=== PATIENT | female | born 1980 | race African-American/Black ===

== ENCOUNTER 2017-01-07 16:06 | Inpatient (IN) ==
[2017-01-07] MEDS ORDERED: KETOROLAC 60 MG/2 ML VIAL IM STA (17:17)
[2017-01-07] MEDS ORDERED: KETOROLAC 60 MG/2 ML VIAL IM ONE (17:41)
[2017-01-07 17:52] LABS: Basophils % 0.5 % (0.0-0.8); Eosinophils # 0.1 10*3/uL (0.0-0.87); Eosinophils % 1.4 % (0.00-10.9); Hematocrit 33.7 VOL% (35.7-47.0); Immature Granulocytes % 0.4 %; Immature Granulocytes Absolute 0.03 #; Lymphocytes # 1.2 10*3/uL (1.4-4.0); Lymphocytes % 15.1 % (21.3-54.2); Mean Corpuscular HGB Conc 32.6 GM/DL (32-36); Mean Corpuscular Hemoglobin 28 PG (27-34); Mean Corpuscular Volume 84.7 FL (87-102); Mean Platelet Volume 10.6 FL (9.6-12.0); Monocytes # 0.6 10*3/uL (0.11-0.8); Monocytes % 7.6 % (1.7-12.7); Platelet Count 296 T/CUMM (130-400); Red Blood Count 3.98 MC/CUMM (3.8-5.5); Red Cell Distribution Width 15.7 % (9.3-17.3); White Blood Count 7.9 T/CUMM (4-12)
[2017-01-07 17:59] LABS: Apearance,Urine Slightly Hazy (Clear); Bilirubin,Urine Negative (Negative); Blood, Urine Negative (Negative); Glucose,Urine (UA) Negative (Negative); Ketones,Urine Negative (Negative); Mucus,Urine Many /LPF (Occasional); Nitrite,Urine Negative (Negative); Protein,Urine 30 MG/DL; RBC,Urine 3 /HPF (0-4); Squamous Epithelial Cell,Urine Occasional /HPF (0-10); Urine Color Amber (Yellow); Urine Specific Gravity 1.031 (1.001-1.035); WBC,Urine 1 /HPF (0-6)
[2017-01-07 18:20] LABS: Albumin 3.2 G/DL (3.4-5.0); Bilirubin,Total 0.9 MG/DL (0.2-1.0); Calcium 8.3 MG/DL (8.5-10.1); Osmolality,Calculated 276.7 MOS/KG (273-304); Potassium 3.8 MMOL/L (3.5-5.1)
--- NOTE | 2017-01-07 18:59 | CT Report ---
CT abdomen pelvis Indication: Abdominal pain Comparison: None available Technique: Axial CT imaging of the abdomen and pelvis is performed with intravenous contrast. Contrast dose is 100 cc of Omnipaque 350. No oral contrast was used. Findings: Cardiac and lung bases are within normal limits CT abdomen: Gallbladder is distended with wall thickening. The liver spleen pancreas and adrenal glands are normal in size and enhancement. No evidence of focal lesion is demonstrated in these solid organs. Kidneys are normal in size and enhancement. No evidence of hydronephrosis or nephrolithiasis is seen. The bowel caliber is normal and no wall thickening or adjacent inflammatory change is seen. No evidence of free fluid or free air is present. Appendix appears normal. CT pelvis: The pelvic bowel appears within normal limits. Bladder shows no evidence of abnormality. The pelvic organs show no evidence of abnormality Impression: Distended gallbladder with wall thickening, could indicate cholecystitis. This CT exam was performed using one or more the following dose reduction techniques: Automated exposure control, adjustment of the MA and/or KV according to patient size, or use of iterative reconstruction technique. PROCEDURE INTERPRETED AT [facility] DEPARTMENT OF RADIOLOGY Final Report Signed by: Dr. Graeme Mnoson
--- NOTE | 2017-01-07 19:32 | Emergency Department Note ---
Marco Jones Manpreet, am scribing for, and in the presence of, Adin Ahumada DO 17 :19. IBrandyn John, DO, personally performed the services described in this documentation, ascribed by Camilo Lara in my presence, and it is both accurate and complete 915 . Arrival - Arrival Chief Complaint: Abdominal / Flank Pain Stated Complaint: Lower stomach and back pain ED Nursing Triage Note: PT C/O RIGHT LOWER QUAD PAIN THAT RADIATES TO RIGHT FLANK SINCE YESTERDAY. PT ALSO C/O PAIN TO RIGHT SHOULDER BLADE. REPORTS PASSING GAS AND HAVING NORMAL BM. DENIES N/V. REPORTS TRACE OF BLOOD ON TISSUE AFTER VOIDING. Mode of Arrival: Ambulatory Limitations: No Limitations Source: Patient Time Seen by Provider: 01/07/17 17:07 - History of Present Illness HPI Narrative: Pt is a 36 y/o female who presents to the ED with CC of right sided Abd pain that goes around to her back onset 01/04/17. Pt states she initially thought it was her period and ignored it. Pt reports of having blood present when she wipes after urination. Pt c/o being nauseated but denies fever, chills, or V/D. Pt felt a sharp pain twice which lasted 3-4 seconds that prompted her to come to the ED. Pt reports of taking penicillin 7 days ago after having a tooth pulled. Pt states her period is next week. No other pains/complaints reported to the ED. Onset (ago): day(s) (01/04/17) Consistency: constant Severity: mild, moderate Severity scale (1-10): 3 Quality: sharp Date of Last Menstrual Period: DEC 13 Allergies/Adverse Reactions: Allergies Allergy/AdvReac Type Severity Reaction Status Date / Time No Known Allergies Allergy Verified 01/07/17 16:24 Home Medications: Home Medications Medication Instructions Recorded Confirmed Type Amoxicillin/Clav Tab [Augmentin 875 mg PO BID #20 tablet 08/21/14 Rx Tab] traMADol TAB [Ultram] 50 mg PO Q8H PRN #20 tablet 08/21/14 Rx Review of System - Review of System 12 point system: reviewed and no additional remarkable complaints except as stated - Review of System Constitutional: Absent: chills, diaphoresis, fever Respiratory: Absent: cough, respiratory distress, wheezing Cardiovascular: Absent: chest pain Gastrointestinal: Present: abdominal pain (Right abd pain), nausea. Absent: vomiting, diarrhea Genitourinary female: Present: hematuria. Absent: dysuria Musculoskeletal: Present: back pain (Right back/flank pain). Absent: arm pain, leg pain Neurological: Absent: headache, weakness, numbness, paresthesias Medical,Surgical,& Family Hx - Surgical History Reproductive Surgeries: Surgical HX of;: Section (X3) - Family History Family History: Reports;: Family Hypertension (PARENTS (LIVING)) - Social History Smoking Status: Never smoker Frequency of Alcohol Use: None Type of Drug Use: None Exam Vital Signs: Vital Signs Temperature 98.5 F 01/07/17 16:21 Pulse Rate 88 01/07/17 16:21 Respiratory Rate 18 01/07/17 16:21 Blood Pressure 115/75 01/07/17 16:21 O2 Sat by Pulse Oximetry 100 01/07/17 16:21 - General General appearance: alert, in no apparent distress - Head Head exam: Present: atraumatic, normocephalic, normal inspection - Eye Eye exam: Present: normal appearance, PERRL, EOMI - ENT ENT exam: Present: normal exam, normal oropharynx, mucous membranes moist, TM's normal bilaterally - Neck Neck exam: Present: normal inspection, full ROM, trachea midline - Chest Chest inspection: Present: normal inspection, symmetric chest wall rise. Absent : tenderness - Respiratory Respiratory exam: Present: normal lung sounds bilaterally. Absent: accessory muscle use, respiratory distress - Cardiovascular Cardiovascular exam: Present: regular rate, normal rhythm, normal heart sounds. Absent: murmur, rubs, gallop - Abdominal Exam Abdominal exam: Present: soft, tenderness (RLQ tenderness), normal bowel sounds. Absent: distention - Extremities Exam Extremities exam: Present: normal inspection, full ROM. Absent: tenderness - Back Exam Back exam: Present: normal inspection, full ROM. Absent: tenderness - Neurological Exam Neurological exam: Present: alert, oriented X3, CN II-XII intact, reflexes normal - Psychiatric Psychiatric exam: Present: normal affect, normal mood - Skin Skin exam: Present: warm, dry, intact, normal color. Absent: pallor Course - Reevaluation(s) Reevaluation #1: Spoke with Dr. Phipps (surgeon tanning consultant). Wants pt admitted--liquids only--NPO after midnight. IV abx also. Time: 19:16 Results - Labs CBC & BMP: 01/07/17 17:20 01/07/17 17:20 Lab Results: I have reviewed the patients labs Labs: Laboratory Tests 01/07/17 17:20 WBC 7.9 RBC 3.98 Hgb 11.0 L Hct 33.7 L MCV 84.7 L MCH 28 MCHC 32.6 RDW 15.7 Plt Count 296 MPV 10.6 Neut % (Auto) 75.0 H Lymph % (Auto) 15.1 L Burleigh % (Auto) 7.6 Eos % (Auto) 1.4 Baso % (Auto) 0.5 Neut # (Auto) 6.0 Lymph # (Auto) 1.2 L Laboratory Tests 01/07/17 01/07/17 17:40 17:40 Urine Color Yohana Urine Appearance Slightly hazy Urine pH 5.0 Ur Specific [place] 1.031 Urine Protein 30 Urine Glucose (UA) Negative Urine Ketones Negative Urine Blood Negative Urine Nitrate Negative Urine Bilirubin Negative Urine Urobilinogen 4.0 H Urine Leukocytes Negative Urine RBC 3 Urine WBC 1 Ur Squamous Epith Cells Occasional Urine Mucus Many Ur Culture Indicated? Not indicated Urine Test Negative Laboratory Tests 01/07/17 17:20 Sodium 138 Potassium 3.8 Chloride 106 Carbon Dioxide 28 Anion Gap 7.8 BUN 17 GFR Calculation 139 Calcium 8.3 L AST 16 Albumin 3.2 L Globulin 3.8 H Albumin/Globulin Ratio 0.8 L - Diagnostic Findings Procedure: CT Abdomen and Pelvis: report reviewed by me ("CT Abd/Pel w/ con: Distended gallbladder with wall thickening, could indicate cholecystitis.") Disposition Clinical Impression: Cholecystitis Case discussed with: patient Disposition: Still a Patient Condition: Stable
[2017-01-07] MEDS ORDERED: ONDANSETRON 4 MG/2 ML VIAL IV PRN (20:17)
[2017-01-07] MEDS: DEXTROSE 5% NACL 0.45% 1,000 ML IV SCH (20:54)
[2017-01-07] MEDS: metroNIDAZOLE INJ 500 MG in PREMIX 1 EACH IV SCH (21:28)
[2017-01-07] MEDS: PIPERACILLIN/TAZOBACTAM 3,375 MG in SODIUM CHLORIDE 0.9% 100 ML IV SCH (23:29)
[2017-01-08] MEDS: metroNIDAZOLE INJ 500 MG in PREMIX 1 EACH IV SCH ×3 (04:34→20:44)
[2017-01-08] MEDS: DEXTROSE 5% NACL 0.45% 1,000 ML IV SCH ×4 (04:36→23:36)
[2017-01-08] MEDS: PIPERACILLIN/TAZOBACTAM 3,375 MG in SODIUM CHLORIDE 0.9% 100 ML IV SCH ×3 (06:31→23:37)
--- NOTE | 2017-01-08 08:35 | General Surg History&Physical ---
Assessment and Plan (1) Cholecystitis Status: Acute Assessment and plan: Impression: Acute cholecystitis Plan: CT scan images and report were reviewed. Patient has a dilated gallbladder with thickened wall. Consistent with cholecystitis. Clinical picture appears to represent cholecystitis. I discussed options with the patient including antibiotics, percutaneous cholecystostomy, cholecystectomy. Risk and benefits of each were discussed. She wants to proceed with cholecystectomy. Risk of the procedure including bleeding, infection, damage to surrounding structures including the biliary tree, need for further surgery, conversion to an open procedure were all discussed in detail and she would like to proceed. Current Visit: Yes History of Present Illness Chief complaint: Abdominal pain History of present illness: Ms. Lemus is a 36 year old female came to the emergency room with right-sided abdominal pain. She states the pain began on Monday of this past week and has never gone away. She had a previous episode of this approximately 2 months ago but it went away after several hours. She states the pain is sharp located in the right upper quadrant and radiates to the right flank. She has had some nausea but no vomiting. She denies fever. Bowel habits have been normal. She has no chest pain or shortness of breath. Home Medications Medication Instructions Recorded Confirmed Type No Known Home Medications [No 01/08/17 01/08/17 History Known Home Medications] Allergies Allergy/AdvReac Type Severity Reaction Status Date / Time No Known Allergies Allergy Verified 01/07/17 16:24 Medical,Surgical,& Family Hx - Medical History Medical History: noncontributory - Surgical History Reproductive Surgeries: Surgical HX of;: Section (X3) - Family History Family History: Reports;: Family Cancer (sister had lymphoma, not currently; grandmother (unknown what type)), Family Diabetes (grandmother), Family Hypertension (PARENTS (LIVING)) - Social History Smoking Status: Never smoker Frequency of Alcohol Use: None Type of Drug Use: None Exam - Constitutional Vitals: Period Temp Pulse Resp BP Sys/Goel Pulse Ox Last 24 Hr 97.7 F-98.9 F 75-88 18-20 115-133/61-77 94-100 General appearance: no acute distress - Head Head exam: Present: normocephalic - ENT Mouth exam: Present: normal external inspection - Neck Neck exam: Present: normal inspection - Respiratory Respiratory exam: Present: clear to auscultation bilaterally - Cardiovascular Cardiovascular exam: Present: RRR - GI/Abdominal GI/Abdominal exam: Present: soft (Tender to palpation in the right upper quadrant with positive Delgado sign. No other abdominal tenderness. Obese but does not appear distended.) - Extremities Exam Extremities exam: Present: normal inspection - Back Exam Back exam: Present: normal inspection - Neurological Exam Neurological exam: Present: alert, oriented X3 Speech: Present: normal - Skin Skin exam: Present: normal color 12 point system: reviewed and no additional remarkable complaints except as stated Results - Labs CBC & BMP: 01/07/17 17:20 01/07/17 17:20 Lab Results: I have reviewed the past 24 hour labs
[2017-01-08] MEDS ORDERED: LIDOCAINE 1%/EPI INJ 20 ML VIAL ONE ×2 (08:46→09:48)
[2017-01-08] MEDS ORDERED: ROCURONIUM 100 MG/10 ML VIAL IV ONE (09:24)
[2017-01-08] MEDS ORDERED: PROPOFOL 200 MG/20 ML VIAL IV ONE (09:24)
[2017-01-08] MEDS ORDERED: ONDANSETRON 4 MG/2 ML VIAL ONE (09:24)
[2017-01-08] MEDS ORDERED: DEXAMETHASONE 10 MG/1 ML VIAL ONE (09:24)
[2017-01-08] MEDS ORDERED: GLYCOPYRROLATE 0.4 MG/2 ML VIAL ONE (09:24)
[2017-01-08] MEDS ORDERED: NEOSTIGMINE 10 MG/10 ML VIAL ONE (09:24)
[2017-01-08] MEDS ORDERED: KETOROLAC 30 MG/1 ML VIAL ONE (09:24)
[2017-01-08] MEDS ORDERED: LIDOCAINE 2% 5 ML VIAL ONE (09:24)
[2017-01-08] MEDS: PANTOPRAZOLE 40 MG TABLET PO SCH (09:27)
--- NOTE | 2017-01-08 10:43 | Anesthesia Post-Op ---
Anesthesia Post OP - Post Ansesthetic Evaluation Patient seen in post op: Yes Resp: within normal limits CV: within normal limits Mental: within normal limits Temp: within normal limits [id number]: within normal limits Nausea and Vomiting: within normal limits Pain: within normal limits
--- NOTE | 2017-01-08 10:51 | Fluoroscopy Report ---
Intraoperative cholangiogram Indication: Cholecystectomy Findings: Intraoperative cholangiogram was performed after cholecystectomy. There is normal passage of contrast into the biliary system and small bowel. No retained calculi are identified in biliary system. Fluoroscopy time 26.3 seconds. Impression: No evidence of abnormality seen. PROCEDURE INTERPRETED AT [facility] DEPARTMENT OF RADIOLOGY Final Report Signed by: Dr. Graeme Monson
--- NOTE | 2017-01-08 11:10 | Operative Note ---
Date of procedure: 01/08/17 Pre-op diagnosis: Acute cholecystitis Post-op diagnosis: same Procedure: Procedure performed: Laparoscopic cholecystectomy with intraoperative cholangiogram Procedure in detail: After informed consent was obtained, patient was taken operating suite and laid supine on the operating table. After general anesthesia was induced the abdomen was prepped and draped in usual sterile fashion. After procedural pause local anesthetic infiltrated in skin and subcutaneous tissue just above the umbilicus. Incision was made and dissection carried down through the soft tissue. The fascia grasped with Nicko's and elevated. Fascial incision was made. Abdominal cavity was entered bluntly. Finger sweep revealed no adhesions. Davies trocar placed under direct visualization. Pneumoperitoneum achieved. The camera inserted bowel mesentery inspected found to be free of any violation. Next patient was placed in reverse Trendelenburg position rotated to the left. 2 5 mm trochars were placed in the right upper quadrant 11 mm subxiphoid trocar was placed all under visualization. Gallbladder identified. It was significantly thickened and acutely edematous all consistent with acute cholecystitis. Cholecystotomy made for decompression and there was clear fluid draining indicating hydrops. Once the gallbladder was decompressed he was able to be grasped and elevated. Omentum was bluntly dissected away from the gallbladder wall. Dissection was carried out from lateral to medial approach and the triangle of Fany. The cystic duct and cystic artery were identified and isolated. Using a critical view technique these are the only 2 structures entering the gallbladder. Clip was placed the junction of the cystic duct neck of the gallbladder and partial transection made on cystic duct and cholangiocatheter inserted and secured in place. Intraoperative glandular and performed. Cystic duct common bile duct intra-and extrahepatic ducts all filled with no filling defects identified. Contrast was seen entering small bowel. The cholangiocatheter was removed and 2 clips were placed on cystic duct just distal to the partial transection the transection completed. Cystic artery was triple clipped and transected and gallbladder removed from the gallbladder fossa using hook cautery and placed in Endo Catch sac and removed to the Davies trocar site. Pneumoperitoneum was reestablished in the right upper quadrant thoroughly irrigated and suctioned. The clips inspected found to be intact no leakage of bilious or sanguinous fluid. There is good hemostasis. The irrigant remained clear was all suctioned. The trochars were removed his abdomen desufflated. Fascia at the Davies trocar site closed using 0 Vicryl [id number] interrupted suture. Wounds were thoroughly irrigated and suctioned. Incisions were closed with jet. Sterile dressings applied. The patient was explained taken recovery room in stable condition. All lap and needle counts were correct at the end of the case. Anesthesia: KAELYNA Surgeon / Physician: Brayan Devlin Estimated blood loss: other (Less than 10 cc) Specimens: other (Gallbladder) Condition: stable Disposition: PACU Results - Labs CBC & BMP: 01/07/17 17:20 01/07/17 17:20 Discharge Plan - Discharge Medications No Action No Known Home Medications [No Known Home Medications] - Follow Up or Referral - Forms/Instructions
[2017-01-08] MEDS ORDERED: DESFLURANE 1 UNIT/15 MINUTE INH ONE (11:19)
[2017-01-08] MEDS ORDERED: MIDAZOLAM 2 MG/2 ML VIAL ONE (11:20)
[2017-01-08] MEDS ORDERED: LACTATED RINGERS 1,000 ML IV ONE (11:20)
[2017-01-08] MEDS ORDERED: fentaNYL 100 MCG/2 ML VIAL ONE (11:20)
[2017-01-08] MEDS ORDERED: SCOPOLAMINE 1.5 MG PATCH TRANSDERM ONE (11:21)
[2017-01-08] MEDS: ACETAMINOPHEN 325 MG TABLET PO PRN ×2 (12:41→20:43)
[2017-01-09] MEDS: DEXTROSE 5% NACL 0.45% 1,000 ML IV SCH (04:46)
[2017-01-09] MEDS: ACETAMINOPHEN 325 MG TABLET PO PRN (05:29)
[2017-01-09] MEDS: metroNIDAZOLE INJ 500 MG in PREMIX 1 EACH IV SCH (05:30)
[2017-01-09] MEDS: PIPERACILLIN/TAZOBACTAM 3,375 MG in SODIUM CHLORIDE 0.9% 100 ML IV SCH (06:57)
[2017-01-09] MEDS: PANTOPRAZOLE 40 MG TABLET PO SCH (08:51)
--- NOTE | 2017-01-09 09:43 | Discharge Summary ---
Hospital Course - Hospital Course Hospital Course: The patient is a 36-year-old female who is admitted with acute cholecystitis and underwent laparoscopic cholecystectomy with intraoperative cholangiogram on 01/08/[address] Devlin. Postoperatively, her pain was well-controlled, she was tolerating oral intake, voiding, and ambulating without difficulty. She was discharged home in good condition with oral analgesics, postoperative instructions, and a follow-up appointment Dr. Devlin. No complications to note. Gallbladder pathology pending at the time of discharge. Diagnosis - Discharge Diagnosis (1) Cholecystitis Status: Acute Discharge Plan - Discharge Data Disposition: Disch To Home/Self Care Condition at Discharge: Stable Discharge Diet: advance to your usual diet Activity: no lifting (Greater than 10 pounds) Hygiene: may shower (Starting second day after surgery) Driving: other (while taking narcotics) Contact your physician if you experience:: fever over 101, Redness or swelling, Nausea/Vomiting, Shortness of breath, Bleeding, pain uncontrolled by pain medications Wound / Dressing Care Instructions: Keep surgical incision clean, dry and covered. Do not soak or submerge wounds. Pat wounds dry. - Discharge Medications New HYDROcodone/ACETAMIN 7.5-325 [Manson 7.5-325] 1 - 2 tablet PO Q4H PRN #30 tablet PRN Reason: Pain Moderate To Severe (4-10) - Follow Up or Referral Follow Up: Brayan Devlin MD [Physician] - 2 Weeks - Forms/Instructions Instructions: Laparoscopic Cholecystectomy (DC) Exam - Constitutional Vitals: Period Temp Pulse Resp BP Sys/Goel Pulse Ox Last 24 Hr 97 F-99.2 F 56-71 16-20 91-123/42-71 95-100 General appearance: no acute distress - Respiratory Respiratory exam: Present: clear to auscultation bilaterally - Cardiovascular Cardiovascular exam: Present: regular rate and rhythm - GI/Abdominal GI/Abdominal exam: Present: hypoactive bowel sounds, tenderness (Appropriate postoperative tenderness), soft, other (Surgical incisions clean, dry and intact ). Absent: distended, firm - Extremities Exam Extremities exam: Absent: calf tenderness, edema - Neurological Exam Neurological exam: Present: alert, oriented X3 - Psychiatric Psychiatric exam: Present: normal affect, normal mood - Skin Skin exam: Present: normal color Discharge Results Procedures and tests throughout hospitalization: Laparoscopic cholecystectomy with intraoperative cholangiogram Dr. Devlin on ; gallbladder pathology pending at the time of discharge - Imaging and Cardiology Procedure: CT Abdomen and Pelvis: image reviewed by me, report reviewed by me ( Distended gallbladder with wall thickening; no cholelithiasis reported) DS: Provider Date of admission: 01/07/17 19:18 Primary care physician: . No PCP Attending physician on admission: Brayan Devlin MD Consults: None Discharging clinician: Judith Ngo PA-C
[2017-01-09 11:19] VITALS: BP 106/58
--- NOTE | 2017-01-10 09:24 | Pathology Report from [facility] ---
[facility] [place] ACCESSION # : [id number] PATIENT NAME : Xavier Lemus ORDERING DR : Brayan Devlin MD CLINICAL HX: Cholecystitis POST-OP DX: Same SPECIMEN INFO: Gallbladder GROSS DESCRIPTION: Received in formalin labeled XAVIER LEMUS is an intact gallbladder measuring 11.4 x 4.5 cm. The serosa is fatty pink gaitan, focally erythematous with an area of ulceration at the fundus. The gallbladder wall has a thickness of up to 0.2 cm. The mucosa is granular, erythematous and ulcerated. The lumen contains hyperemic viscous bile with a 3.2 x 1.7 cm oval roughened yellow gaitan stone and smaller smooth faceted brown stones noted measuring 2.5 x 4 cm in aggregate and a portion is located within the cystic duct. Privacy Officer tissue is submitted in one cassette. DIAGNOSIS FOR XAVIER LEMUS: GALLBLADDER: Acute and chronic cholecystitis. Cholelithiasis. No evidence of malignancy. COLLECTED DATE: 01/09/2017 [facility] REPORT DATE: 01/09/2017 ELECTRONICALLY SIGNED BY: Matt Deleon III, M.D. 01/09/2017 - 11:06:17 GAGANDEEP
--- NOTE | 2017-01-11 14:44 | Physician Query Form ---
CLICK EDIT DOCUMENT TO SELECT QUERY ANSWER --> OK --> SIGN Brinada Pritchard RN Clinical Cutting Tool Sharpener W) [phone] (f) [phone] [email or web address] PROVIDERS: Make your selection(s) from the choices in EACH section by typing an "x" and enter comments in the comment section. Please use your independent medical judgment in providing your response. This request does not imply that any particular answer is desired or expected. CLINICAL INDICATORS: (Providers should not edit this section) Based on documentation of "admitted with acute cholecystitis and underwent laparoscopic cholecystectomy with intraoperative cholangiogram". Pathology report states "Acute and chronic cholecystitis. Cholelithiasis". Please clarify if you agree with pathology findings. Pathology Findings:Acute and chronic cholecystitis. Cholelithiasis Abnormal Pathology findings are not reported unless an authorized provider indicates their clinical significance Please select the best choice: ( ) I agree with the Pathology findings ( ) I disagree with the Pathology findings ( ) No clinical significance ( ) Other/clarification of findings, please specify: ( ) Clinically unable to determine COMMENTS: PLEASE ALSO DOCUMENT RESPONSE IN PROGRESS NOTES AND/OR DISCHARGE SUMMARY Use of terms such as suspected, likely, or probable (associated with a specific diagnosis that is being evaluated, monitored, or treated as if it exists) are acceptable and can be restated in the discharge summary if not ruled out. MTDD
--- NOTE | 2017-01-12 07:37 | Physician Query Form ---
CLICK EDIT DOCUMENT TO SELECT QUERY ANSWER --> OK --> SIGN Brianda Pritchard RN Clinical Building Carpenter Helper W) [phone] (f) [phone] [email or web address] PROVIDERS: Make your selection(s) from the choices in EACH section by typing an "x" and enter comments in the comment section. Please use your independent medical judgment in providing your response. This request does not imply that any particular answer is desired or expected. CLINICAL INDICATORS: (Providers should not edit this section) Pathology Findings: Based on documentation of "admitted with acute cholecystitis and underwent laparoscopic cholecystectomy with intraoperative cholangiogram". Pathology report states "Acute and chronic cholecystitis. Cholelithiasis". Please clarify if you agree with pathology findings. Pathology Findings:Acute and chronic cholecystitis. Cholelithiasis Abnormal Pathology findings are not reported unless an authorized provider indicates their clinical significance Please select the best choice: ( x) I agree with the Pathology findings ( ) I disagree with the Pathology findings ( ) No clinical significance ( ) Other/clarification of findings, please specify: ( ) Clinically unable to determine COMMENTS: PLEASE ALSO DOCUMENT RESPONSE IN PROGRESS NOTES AND/OR DISCHARGE SUMMARY Use of terms such as suspected, likely, or probable (associated with a specific diagnosis that is being evaluated, monitored, or treated as if it exists) are acceptable and can be restated in the discharge summary if not ruled out. MTDD
== END 2017-01-09 12:40 | disposition home or self-care (01) | DRG 418 ==
LOC: N.ED 16:06 → N.EDINP 19:18 → N.3E 19:51
PROVIDERS: ADMIT Surgery; ATTEND Surgery
PROC: LAPCHOL (2017-01-08 09:24)